=== PATIENT | female | born 1945 | race Caucasian/White ===

== ENCOUNTER → 2018-07-28 | Outpatient (CLI) | payer MEDICARE, OTHER ==
[~2018-07-28] MED LIST: AMIT25TA PO; AMLO1CAP10 PO; AMLO5TAB7 PO; ASPI-612 PO; ATOR10TA PO; DICL100G18 TP; DULO60CA6 PO; ECON15CR TP; FLUT16SP NS; FLUT1DIS3 IH; GABA600T2 PO; HYDR12.58 PO; IBUP-1027 PO; LEVO125T5 PO; LEVO150T5 PO; LISI-334 PO; LISI10TA2 PO; METF500T16 PO; MONT10TA9 PO; OMEP40CA5 PO; PROAIR HFA8.5 GM INH; SITA25TA PO; SPIR25TA5 PO
--- NOTE | 2018-07-28 14:25 | EKG ---
[facility] [address] [place] [address] Test Date: 2018-07-28 Test Time: 13:29:20 Pat Name: SANDRA SEE Department: Room: Gender: F Weight Shifter: BRITNEY Martinez : 1945 Requested By: REJI URIBE Order Number: [id number] Reading MD: Edwin Wellington MD Measurements Intervals [place] Rate: 72 P: 43 UT: 214 QRS: 6 QRSD: 90 T: 67 QT: 376 QTc: 413 Interpretive Statements SINUS RHYTHM 1ST DEGREE AVB NON-SPECIFIC ST/T CHANGES Electronically Signed On 07-29-2018 10:07:51 CDT by Edwin Wellington MD
[2018-07-28 14:31] LABS: BILIRUBIN,URINE NEGATIVE (NEG); CLARITY,URINE CLEAR; COLOR,URINE YELLOW; NITRITE,URINE NEGATIVE (NEG); PROTEIN,URINE NEGATIVE (NEG-TRACE)
[2018-07-28 14:55] LABS: BACTERIA,URINE FEW /HPF (0-FEW); HYALINE CASTS, URINE FEW /HPF; RBC,URINE OCC /HPF (0-2); SQUAMOUS EPITHELIAL CELL,UR MOD /LPF
[2018-07-28 15:10] LABS: BASO # 0.1 x10^3/uL (0.0-0.2); BASO % 1 % (0-3); EOS # 0.3 x10^3/uL (0.0-0.7); EOS % 3 % (0-3); HEMATOCRIT 35.6 % (36.0-47.0); HEMOGLOBIN 12.1 g/dL (12.0-15.5); LYMPH # 2.3 x10^3/uL (1.0-4.8); LYMPH % 23 % (24-48); MEAN CORPUSCULAR HEMOGLOBIN 29 pg (25-35); MEAN CORPUSCULAR HGB CONC 34 g/dL (31-37); MEAN CORPUSCULAR VOLUME 86 fL (79-100); MONO # 0.7 x10^3/uL (0.0-1.1); MONO % 8 % (0-9); NEUT # 6.4 x10^3uL (1.8-7.7); NEUT % 65 % (31-73); PLATELET COUNT 410 x10^3/uL (140-400); PROTHROMBIN TIME PATIENT 12.7 SEC (11.7-14.0); RED BLOOD COUNT 4.12 x10^6/uL (3.50-5.40); RED CELL DISTRIBUTION WIDTH 14.7 % (11.5-14.5); WHITE BLOOD COUNT 9.8 x10^3/uL (4.0-11.0)
[2018-07-28 15:21] LABS: CALCIUM 9.7 mg/dL (8.5-10.1); CREATININE 1.4 mg/dL (0.6-1.0); GFR 37.1; POTASSIUM 4.3 mmol/L (3.5-5.1)
--- NOTE | 2018-07-28 16:27 | RAD ---
AP and Lateral Views of the Chest 07/28/2018 3:18 PM Indication: left knee replacement Comparison: None Findings: There is no focal consolidation or infiltrate identified. The cardiomediastinal silhouette is within normal limits. There is no evidence of pneumothorax or pleural effusion. Dorsal column stimulator noted. No acute osseous abnormalities are identified. Impression: No evidence of acute cardiopulmonary process. Electronically signed by: Carlos Sheikh MD (07/28/2018 4:23 PM) [id number]
[2018-07-29 05:20] LABS: HEMOGLOBIN A1C 6.1 % (4.8-5.6)
== END | disposition home or self-care (01) ==
LOC: SURGPAT 13:12
PROVIDERS: ATTEND Orthopaedic Surgery
DX: Z01.818 Encounter for other preprocedural examination (principal); M17.12 Unilateral primary osteoarthritis, left knee
CPT/HCPCS: 36415; 71046; 80048; 81001; 82040; 82306; 83036; 85025; 85610; 85651; 85730; 87086; 87641; 93005

== ENCOUNTER 2018-08-19 10:40 | Inpatient (IN) | payer MEDICARE, OTHER ==
--- NOTE | 2018-08-18 13:21 | PDOC1 ---
History and Physical Date of Admission Date of Admission DATE: 08/19/18 Identification/Chief Complaint Chief Complaint left knee osteoarthritis pain Source Source: Chart review History of Present Illness History of Present Illness The patient is a 72 y/o female with left knee pain worsening in the last few months. She was last seen in clinic on 06.09.2018. She was offered a cortisone injection, but did not want one at the time. She is ready to proceed with total knee arthroplasty. She states the knee hurts constantly, and interferes with her daily life. She states she has osteoarthritis of the feet and neuropathy of the feet. She arrived ambulating without assistive devices. She had excessive bleeding with carpal tunnel release Past Medical History Cardiovascular: HTN Psych: Depression Endocrine: Hypothyroidism Past Surgical History Past Surgical History: Cholecystectomy, Hysterectomy, Other (bowel surgery, bilat carpal tunnel release) Family History Family History: Diabetes, Heart Disease, Hypertension Social History Smoke: No ALCOHOL: none Drugs: None Current Medications Current Medications Active Scripts Active Reported Advair 250-50 Diskus (Fluticasone/Salmeterol) 1 Each Disk.w.dev 1 Puff IH BID Spironolactone 25 Mg Tablet 1 Tab PO DAILY Omeprazole 40 Mg Capsule.dr 1 Cap PO DAILY Montelukast Sodium Tablet (Montelukast Sodium) 10 Mg Tablet 1 Tab PO HS Metformin Hcl 500 Mg Tablet 500 Mg PO DAILY Lisinopril 10 Mg Tablet 1 Tab PO HS Levothyroxine Sodium 125 Mcg Tablet 1 Tab PO DAILY Ibuprofen 400 Mg Tablet 400 Mg PO PRN Q6HRS PRN Hydrochlorothiazide Tablet (Hydrochlorothiazide) 12.5 Mg Tablet 25 Mg PO DAILY Gabapentin 600 Mg Tablet 600 Mg PO TID Fluticasone Propionate Nasal [place] (Fluticasone Propionate) 16 Gm [place].susp 1 [place] NS DAILY Cymbalta (Duloxetine Hcl) 60 Mg Capsule.dr 1 Cap PO DAILY Voltaren (Diclofenac Sodium) 100 Gm Gel..gram. 2 Gm TP QID Aspirin Ec (Aspirin) 81 Mg Tablet.dr 1 Tab PO DAILY Amlodipine Besylate 5 Mg Tablet 5 Mg PO DAILY Proair Hfa Inhaler (Albuterol Sulfate) 8.5 Gm Hfa.aer.ad 2 Puff INH PRN Q6HRS PRN Spironolactone 25 Mg Tablet 25 Mg PO DAILY Lipitor (Atorvastatin Calcium) 10 Mg Tablet 10 Mg PO DAILY Januvia (Sitagliptin Phosphate) 25 Mg Tablet 25 Mg PO DAILY Allergies Allergies: Coded Allergies: Sulfa (Sulfonamide Antibiotics) (Verified Allergy, Intermediate, Rash, 07/28/18) Physical Exam General: Alert, Oriented X3, Cooperative, No acute distress HEENT: Atraumatic, EOMI Lungs: Normal air movement Heart: RRR Abdomen: Soft Extremities: No clubbing, No cyanosis, Normal pulses, Other ( LEFT KNEE: No masses. No detectable effusion. Tenderness on the medial and lateral joint lines. Range of motion is 2-120 degrees. There is crepitus with range of motion , and pain at the extremes of motion. The knee is stable to varus and valgus stress without subluxation or laxity. Muscle strength is normal (5/5) for quadriceps and hamstrings, and muscle tone is normal. The skin is normal with no scars, rashes, lesions or ulcers. Light touch sensation is intact. No edema. Some varicose veins. Dorsalis pedis pulse is +1 and capillary refill is normal. ) Skin: No rashes, No breakdown, No significant lesion Neuro: Normal speech, Sensation intact Psych/Mental Status: Mental status NL, Mood NL Images Images IMAGING REPORT Joint survey, hips knees and ankles Clinical information: Preoperative for total knee arthroplasty Comparison: None. Findings Bones: The angle between the right hip-ankle mechanical axis and the femoral shaft is 5 degrees. The angle between the left hip-ankle mechanical axis and the femoral shaft is 5 degrees. From hip to ankle, the right lower extremity is in a degrees of varus. From hip to ankle, the left lower extremity is in 9degrees of varus. Joints: There is narrowing of the right knee joint medially. There is narrowing of the left knee joint medially. The hips and ankles show minimal degenerative changes. Soft tissue: Normal. Impression: Varus alignment of the right knee. Varus alignment of the left knee. The difference between the mechanical axis and femoral shaft anatomic axis is 5 degrees bilaterally. Dictated and Signed Using Voice Recognition Software Richie Sebastian MD VTE Prophylaxis Ordered VTE Prophylaxis Devices: Yes VTE Pharmacological Prophylaxi: Yes Assessment/Plan Assessment/Plan Left knee osteoarthritis pain. Ysabel is a 72 year old female with left knee osteoarthritis. She would like to proceed with total knee replacement. She will not go to the [facility] preoperatively as she went with her recently when he had his knee done. She will schedule at her convenience. We discussed the risks and benefits of knee replacement including bleeding, infection, post-operative stiffness, instability, ilya-prosthetic fracture, DVT and PE. All questions were answered. She would like to proceed with the surgery to improve her pain with activity. Follow up with me 10-12 days after surgery. SHIRAZ ANGEL Aug 18, 2018 13:21
[~2018-08-19] VITALS: Ht 162.6 cm; Wt 104.3 kg
[2018-08-19] VITALS (7 sets, daily range): BP systolic 122–142; BP diastolic 72–85
[~2018-08-19 10:40] MED LIST changes: +HYDROcodone/APAP 7.5/325MG 1 TAB TABLET PO PRN; +HYDROmorphone 2 MG/ML VIAL IV PRN; +IV RINGERS,LACTATED 1000ML 1,000 ML IV SCH; +LIDOCAINE 1% PF 2 ML VIAL. ID PRN; +MORPHINE SULFATE 2 MG/ML VIAL. IV PRN; +ONDANSETRON PF 4 MG/2 ML VIAL. IV PRN; +PROCHLORPERAZINE 10 MG/2 ML VIAL. IV PRN; +TRANEXAMIC ACID 1,000 MG in IV NS 50ML -- 1ST BAG INJ ONE; +TRANEXAMIC ACID 1,000 MG in IV NS 50ML -- 2ND BAG INJ ONE; +fentaNYL PF VIAL 100 MCG/2 ML VIAL IV PRN
[2018-08-19] MEDS ORDERED: PROPOFOL 20 ML IV ONE (10:44)
[2018-08-19] MEDS ORDERED: LIDOCAINE 2% PF Vial for OR 5 ML VIAL. ONE (10:44)
[2018-08-19] MEDS ORDERED: ONDANSETRON PF 4 MG/2 ML VIAL. ONE (10:44)
[2018-08-19] MEDS ORDERED: DEXAMETHASONE SOD PHOS 20 MG/5 ML VIAL. ONE (10:44)
[2018-08-19] MEDS ORDERED: PHENYLEPHRINE in 0.9% NACL PF 1 MG/10 ML SYRINGE. IV ONE (10:44)
[2018-08-19] MEDS ORDERED: fentaNYL PF VIAL 100 MCG/2 ML VIAL ONE ×3 (11:06→14:46)
[2018-08-19] MEDS ORDERED: MIDAZOLAM HCL/PF 2 MG/2 ML VIAL. ONE (11:06)
[2018-08-19] MEDS ORDERED: VANCOMYCIN 1 GM VIAL. ONE (11:18)
[2018-08-19] MEDS ORDERED: TOBRAMYCIN POWDER 1.2 GM VIAL. ONE (11:18)
[2018-08-19] MEDS ORDERED: SUCCINYLCHOLINE 200 MG/10 ML VIAL. ONE (13:00)
[2018-08-19] MEDS ORDERED: ROCURONIUM 50 MG/5 ML VIAL. ONE (13:01)
[2018-08-19] MEDS ORDERED: ePHEDrine PF IN SALINE 50 MG/5 ML DISP.SYRIN IV ONE (13:51)
[2018-08-19] MEDS ORDERED: GLYCOPYRROLATE 1 MG/5 ML VIAL. ONE (14:10)
[2018-08-19] MEDS ORDERED: KETAMINE HCL 50 MG/5 ML SYRINGE ONE (14:46)
[2018-08-19] MEDS ORDERED: NEOSTIGMINE METHYLSULFATE 5 MG/5 ML SYRINGE. ONE (14:56)
--- NOTE | 2018-08-19 15:42 | PDOC4 ---
Operative Note Operative Note Date of Procedure: August 19, 2018 Pre-Op Diagnosis: Osteoarthritis left knee Post-Op Diagnosis: Osteoarthritis left knee Procedure: left total knee arthroplasty Surgeon: Reji Sebastian MD Weatherization Installer: Libertad Lara PA-C Anesthesia: General EBL: 100mL Specimens Obtained: left knee bone and soft tissue Complications: none Implant Company: [employer] Drains: hemovac plus pain catheter Tourniquet time: 44 Minutes Tourniquet Pressure: 350 mm Hg Indications for Procedure: Arthritis pain unrelieved by nonoperative management Findings: Severe osteoarthritis with full thickness cartilage loss in all three compartments, especially at the medial tibiofemoral joint where there was eburnated bone and small area of bone loss at the medial tibia articular surface. Implants used: Size 3 left bicruciate stabilized Journey II BCS cobalt chrome femoral component, size 2 left Journey nonporous tibial baseplate, size 1 -2 15 mm left Journey II BCS XLPE articular insert, 32 mm oval Malina II resurfacing patellar component Procedure in Detail: The patient was identified in the preoperative holding area, and the correct left lower extremity was marked by me. The patient was taken to the operating room where the patient was anesthetized by the Department of Anesthesia. Preoperative antibiotics were given intravenously. Tranexamic acid 1 g was given intravenously for intraoperative hemostasis. A "time-out" procedure was performed. The patient was positioned supine on the operative table with a tourniquet on the upper left thigh. The left lower limb was thoroughly scrubbed , then sterile surgical prep solution was applied, and the limb was draped in sterile fashion. An impervious stockinet and adhesive drape were used such that the skin was entirely covered. An Dunlap leg stanton was used. The operating team wore personal exhaust-ventilated hoods. The limb exsanguinated with an Esmarch bandage, and the tourniquet was inflated. A midline skin incision was made with a scalpel using the patella and tibial tubercle as landmarks. Electrocautery was used for hemostasis. My licensed nursing assistant used rake retractors. A medial parapatellar arthrotomy incision was used with extension into the distal quadriceps tendon. The patella was retracted laterally and Hohmann retractors were now used by my licensed nursing assistant. Excess synovium, the menisci, and the cruciate ligaments were resected sharply. The patella was assessed and excess synovium and osteophytes around the patellar articulation were removed. The patella was measured with a caliper, cut freehand with a saw using caliper measurements, sized, and then drilled for an oval three-pegged patella component. Periarticular anesthetic injection was used in the suprapatellar pouch and distal quadriceps muscle. Whitesides's line and the transepicondylar axis were marked on the femur. An intra-medullary 5 degree cutting guide was pinned to the femur, and a distal femoral cut was made with an oscillating saw. No additional distal femoral resection was required. My licensed nursing assistant held Hohmann retractors and an [facility] retractor to protect the medial and lateral collateral ligaments, the patellar tendon, the skin and the other soft tissues. A posterior referencing guide was applied with external rotation of 3 to match Whitesides line. A 5-in-1 Journey II cutting guide was then applied and pinned to the femur. The posterior, anterior, and all chamfer cuts were made with the oscillating saw. An extramedullary guide was pinned to the tibia and rotational alignment and the planned resection thickness assessed. An external alignment sera was used to verify the planned cut in the varus-valgus plane and regarding posterior slope referencing the tibial tubercle, the tibial shaft, the ankle joint, and the second metatarsal. The upper tibia was cut made with an oscillating saw. My licensed nursing assistant held Hohmann retractors and a posterior cruciate ligament retractor to protect the medial and lateral collateral ligaments, the patellar tendon, the skin, the peroneal nerve and the other soft tissues. The upper tibia was sized with a trial baseplate. The posterior compartment was cleared of osteophytes and loose bodies. Periarticular anesthetic injection was used in the posterior compartment. The box cut for a posterior stabilized component was made. A preliminary reduction was performed with a trial femur, trial tibial baseplate and trial polyethylene. Soft-tissue balancing was now performed, and extension and rotation of the alignments was checked using a guide sera in the tibial trial and a guide pin in the femur. No additional releases were required. The stability was assessed using different thicknesses of tibial articular surface to find satisfactory stability and good range of motion. The rotation of the tibial component was marked on the upper tibia. Final trial reduction was now performed verifying patella tracking and tibiofemoral stability and alignment. A lateral patellar retinacular release was used for improved patella tracking. The tibia preparation was completed with a drill, saw, and fin punch at the previously noted rotation. The final implants were verified and opened. Outer gloves were changed by the operating team. The bone cuts were washed thoroughly with the [place] InterPulse device and dried. I asked Ms. Lara to leave the room while the cement was mixed. Two packages of Cervantes + Nephew Rally MV bone cement were mixed in powdered form with Vancomycin 1gm and Tobramycin 1.2 gm, and then vacuum-mixed with the monomer, and placed into a cement gun. The cut surfaces of the bone were thoroughly dried with Walls-tip suction and with laparotomy sponges for cement interdigitation. The final components were cemented into place. The knee was kept at full extension while the cement hardened, and excess cement was removed. Tranexamic acid 1 g was redosed intravenously for additional intraoperative hemostasis. Ms. Lara scrubbed, hooded, gowned, gloved, and returned to the case. The tourniquet was released, and electrocautery was used for hemostasis. A final periarticular anesthetic injection was used for pain relief. A final check of [id number] and stability was made, and the polyethylene implant final size was chosen. The polyethylene implant was secured to the tibial baseplate, and the knee was reduced a final time and range of motion and stability was confirmed. Thorough saline irrigation was used. Hemovac and pain catheter were used. The arthrotomy was closed with interrupted figure-of- eight #1 PDS suture. The arthrotomy incision was then run with #1 STRATAFIX Symmetric PDS Plus Knotless suture. The subcutaneous tissues were closed with #2-0 Vicryl by my licensed nursing assistant. The skin was approximated with isatu by my licensed nursing assistant. The skin incision was then covered and reinforced with CONRAD single use negative pressure wound therapy dressing Needle and sponge counts were correct. There were no apparent complications. The patient returned to the recovery room in stable condition. REJI SEBASTIAN MD Aug 19, 2018 15:42
[2018-08-19] MEDS ORDERED: SEVOFLURANE > 120 MINUTES. IH ONE (15:45)
[2018-08-19] MEDS ORDERED: oxyCODONE/APAP 5/325 1 TAB TABLET PO PRN (16:00)
[2018-08-19] MEDS ORDERED: diphenhydrAMINE HCL 25 MG CAPSULE PO PRN (16:00)
[2018-08-19] MEDS ORDERED: PROCHLORPERAZINE 5 MG TABLET. PO PRN (16:00)
[2018-08-19] MEDS ORDERED: CALCIUM CARBONATE 500 MG TAB.CHEW PO PRN (16:00)
[2018-08-19] MEDS ORDERED: PROCHLORPERAZINE 10 MG/2 ML VIAL. IV PRN (16:00)
[2018-08-19] MEDS ORDERED: fentaNYL PF VIAL 100 MCG/2 ML VIAL IV PRN ×2 (16:00)
[2018-08-19] MEDS ORDERED: ZOLPIDEM 5 MG TABLET. PO PRN (16:00)
[2018-08-19] MEDS ORDERED: HYDROcodone/APAP 7.5/325MG 1 TAB TABLET PO PRN (16:00)
[2018-08-19] MEDS ORDERED: MORPHINE SULFATE 10 MG/ML VIAL. IV PRN (16:00)
[2018-08-19] MEDS ORDERED: MORPHINE SULFATE 4 MG/ML VIAL. IV PRN ×2 (16:00)
[2018-08-19] MEDS ORDERED: 0.9 % SODIUM CHLORIDE 10 ML DISP.SYRIN. IV PRN (16:00)
[2018-08-19] MEDS ORDERED: traMADol 50 MG TABLET PO PRN ×2 (16:00)
[2018-08-19] MEDS ORDERED: MORPHINE SULFATE 2 MG/ML VIAL. IV PRN (16:00)
[2018-08-19] MEDS ORDERED: ACETAMINOPHEN 325 MG TABLET. PO PRN (16:00)
[2018-08-19] MEDS ORDERED: HYDROcodone/APAP 10/325 1 TAB TABLET PO PRN (16:00)
[2018-08-19] MEDS ORDERED: METOCLOPRAMIDE HCL 10 MG/2 ML VIAL. IV PRN (16:00)
[2018-08-19] MEDS ORDERED: DEXTROSE 50% 25 GM / 50ML DISP.SYRIN. IV PRN (16:00)
[2018-08-19] MEDS: fentaNYL PF VIAL 100 MCG/2 ML VIAL IV PRN ×4 (16:15→16:48)
[2018-08-19] MEDS: amLODIPine BESYLATE 5 MG TABLET PO SCH (17:00)
[2018-08-19] MEDS: FERROUS SULFATE 325 MG TABLET. PO SCH (17:00)
[2018-08-19] MEDS: DULoxetine HCL 30 MG CAPSULE.DR PO SCH (17:00)
[2018-08-19] MEDS: SPIRONOLACTONE 25 MG TABLET PO SCH (17:00)
[2018-08-19] MEDS: hydroCHLOROthiazide 25 MG TABLET PO SCH (17:00)
[2018-08-19] MEDS: MULTIVITAMIN with MINERAL TABLET. PO SCH (17:00)
[2018-08-19] MEDS ORDERED: MAGNESIUM HYDROXIDE 2,400 MG/30 ML ORAL.SUSP. PO PRN (17:00)
[2018-08-19] MEDS: PANTOPRAZOLE 40 MG TABLET.DR. PO SCH (17:30)
--- NOTE | 2018-08-19 17:35 | RAD ---
Indication:POST OP LEFT KNEE REPLACEMENT. TECHNIQUE: 2 views of the left knee COMPARISON:None FINDINGS: Status post total left knee arthroplasty. No acute fractures. Surgical drain is seen with its tip in the anterior joint space. No significant suprapatellar effusion. Midline anterior skin isatu noted. IMPRESSION: Expected postsurgical changes from totalw knee arthroplasty. Electronically signed by: Hermann Barajas DO (08/19/2018 5:32 PM) [facility]
[2018-08-19] MEDS: IV DEXTROSE 5 %-0.45 % NACL 1,000 ML IV SCH (17:39)
[2018-08-19] MEDS ORDERED: ALBUTEROL SULFATE 2.5 MG/3 ML NEBU. NEB SCH (18:00)
[2018-08-19] MEDS: oxyCODONE/APAP 7.5/325 1 TAB TABLET PO PRN ×2 (18:33→21:51)
[2018-08-19] MEDS: BUDESONIDE 0.5 MG/2 ML NEBU. NEB SCH ×2 (20:00→20:01)
[2018-08-19] MEDS: ALBUTEROL SULFATE 2.5 MG/3 ML NEBU. NEB SCH ×2 (20:01→20:12)
[2018-08-19] MEDS ORDERED: NON FORMULARY ITEM (Fluticasone/Salmeterol (Advair 250-50 Diskus) 1 PUFF) IH SCH (21:00)
[2018-08-19] MEDS: ATORVASTATIN CALCIUM 10 MG TABLET. PO SCH (21:04)
[2018-08-19] MEDS: ASPIRIN ENTERIC COATED 325 MG TABLET.DR. PO SCH (21:04)
[2018-08-19] MEDS: MONTELUKAST SODIUM 10 MG TABLET. PO SCH (21:04)
[2018-08-19] MEDS: GABAPENTIN 300 MG CAPSULE. PO SCH (21:05)
[2018-08-19] MEDS: LISINOPRIL 10 MG TABLET PO SCH (21:05)
[2018-08-19] MEDS ORDERED: ALBUTEROL INH PRN (23:00)
[2018-08-20] MEDS: IV DEXTROSE 5 %-0.45 % NACL 1,000 ML IV SCH ×3 (01:53→19:21)
[2018-08-20] MEDS: oxyCODONE/APAP 7.5/325 1 TAB TABLET PO PRN ×4 (02:11→19:26)
[2018-08-20 03:18] VITALS: BP 140/78
[2018-08-20 04:43] LABS: HEMATOCRIT 30.9 % (36.0-47.0); HEMOGLOBIN 10.4 g/dL (12.0-15.5)
[2018-08-20] MEDS: LEVOTHYROXINE 125 MCG TABLET PO SCH (06:07)
[2018-08-20] MEDS: PANTOPRAZOLE 40 MG TABLET.DR. PO SCH (06:07)
[2018-08-20 06:39] VITALS: BP 110/65
[2018-08-20] MEDS: SPIRONOLACTONE 25 MG TABLET PO SCH (08:14)
[2018-08-20] MEDS: DULoxetine HCL 30 MG CAPSULE.DR PO SCH (08:14)
[2018-08-20] MEDS: ASPIRIN ENTERIC COATED 325 MG TABLET.DR. PO SCH ×2 (08:15→21:40)
[2018-08-20] MEDS: SENNOSIDES/DOCUSATE 8.6/50MG TABLET. PO SCH ×2 (08:15→15:49)
[2018-08-20] MEDS: MULTIVITAMIN with MINERAL TABLET. PO SCH (08:15)
[2018-08-20] MEDS: metFORMIN 500 MG TABLET PO SCH (08:15)
[2018-08-20] MEDS: hydroCHLOROthiazide 25 MG TABLET PO SCH (08:15)
[2018-08-20] MEDS: GABAPENTIN 300 MG CAPSULE. PO SCH ×3 (08:15→21:40)
[2018-08-20] MEDS: FERROUS SULFATE 325 MG TABLET. PO SCH ×2 (08:15→15:49)
[2018-08-20] MEDS: NON FORMULARY ITEM (Fluticasone/Salmeterol (Advair 250-50 Diskus) 1 PUFF) IH SCH ×2 (08:17→21:41)
[2018-08-20 08:21] VITALS: BP 102/64
[2018-08-20] MEDS: FLUTICASONE 50MCG/NASAL SPRAY 16GM BOTTLE. NS SCH (09:00)
[2018-08-20] MEDS ORDERED: NON FORMULARY ITEM (Spironolactone 1 TAB) PO SCH (09:00)
[2018-08-20] MEDS ORDERED: NON FORMULARY ITEM (Fluticasone/Salmeterol (Advair 250-50 Diskus) 1 PUFF) IH SCH (09:00)
[2018-08-20] MEDS: amLODIPine BESYLATE 5 MG TABLET PO SCH (09:00)
[2018-08-20] MEDS ORDERED: SPIRONOLACTONE 25 MG PO SCH (09:00)
--- NOTE | 2018-08-20 09:22 | PDOC ---
PROGRESS NOTES Subjective Subjective Doing well. Pain controlled. Objective Vital Signs Vital Signs Date Time Temp Pulse Resp B/P (MAP) Pulse Ox O2 Delivery O2 Flow Rate FiO2 08/20/18 08:21 64 20 102/64 (77) 08/20/18 06:39 98.3 95 Room Air 98.3 08/19/18 18:37 3.0 Physical Exam Postop dressing dry and intact. Hemovac and pain catheter in place. Thigh and calf soft and nontender with negative Homans sign. Good AROM toes, foot, and ankle, with no sign of neurovascular injury nor compartment syndrome. Labs Laboratory Tests Test 08/19/18 11:28 08/19/18 16:37 08/20/18 04:15 08/20/18 07:00 Glucose (Fingerstick) 114 mg/dL (70-99) 199 mg/dL (70-99) 118 mg/dL (70-99) Hemoglobin 10.4 g/dL (12.0-15.5) Hematocrit 30.9 % (36.0-47.0) Mean Corpuscular Hemoglobin Concent 34 g/dL (31-37) Laboratory Tests Test 08/19/18 11:28 08/19/18 16:37 08/20/18 04:15 08/20/18 07:00 Glucose (Fingerstick) 114 mg/dL (70-99) 199 mg/dL (70-99) 118 mg/dL (70-99) Hemoglobin 10.4 g/dL (12.0-15.5) Hematocrit 30.9 % (36.0-47.0) Mean Corpuscular Hemoglobin Concent 34 g/dL (31-37) Imaging Postoperative knee x-rays report reviewed, images independently reviewed. Satisfactory TKA alignment with no apparent complications. Assessment Assessment POD #1 TKA Plan Plan of Care Continue POC including PT and DVT prophylaxis. SHIRAZ ANGEL Aug 20, 2018 09:22
[2018-08-20 11:45] VITALS: BP 94/65
[2018-08-20] MEDS ORDERED: BISACODYL 10 MG SUPP.RECT. PR PRN (16:00)
[2018-08-20 17:48] VITALS: BP 104/62
[2018-08-20] MEDS: LISINOPRIL 10 MG TABLET PO SCH (21:00)
[2018-08-20] MEDS: ATORVASTATIN CALCIUM 10 MG TABLET. PO SCH (21:40)
[2018-08-20] MEDS: AMITRIPTYLINE HCL 50 MG TABLET PO SCH (21:40)
[2018-08-20] MEDS: MONTELUKAST SODIUM 10 MG TABLET. PO SCH (21:40)
[2018-08-21] MEDS: oxyCODONE/APAP 7.5/325 1 TAB TABLET PO PRN ×5 (04:19→20:40)
[2018-08-21 05:35] LABS: HEMATOCRIT 29.6 % (36.0-47.0); HEMOGLOBIN 9.8 g/dL (12.0-15.5)
[2018-08-21 05:46] VITALS: BP 109/56
[2018-08-21] MEDS: PANTOPRAZOLE 40 MG TABLET.DR. PO SCH (06:34)
[2018-08-21] MEDS: LEVOTHYROXINE 125 MCG TABLET PO SCH (06:34)
[2018-08-21] MEDS: FLUTICASONE 50MCG/NASAL SPRAY 16GM BOTTLE. NS SCH (09:00)
[2018-08-21] MEDS: GABAPENTIN 300 MG CAPSULE. PO SCH ×3 (09:03→20:39)
[2018-08-21] MEDS: ASPIRIN ENTERIC COATED 325 MG TABLET.DR. PO SCH ×2 (09:04→20:39)
[2018-08-21] MEDS: MULTIVITAMIN with MINERAL TABLET. PO SCH (09:04)
[2018-08-21] MEDS: SENNOSIDES/DOCUSATE 8.6/50MG TABLET. PO SCH (09:04)
[2018-08-21] MEDS: metFORMIN 500 MG TABLET PO SCH (09:04)
[2018-08-21] MEDS: FERROUS SULFATE 325 MG TABLET. PO SCH ×2 (09:04→17:05)
[2018-08-21] MEDS: DULoxetine HCL 30 MG CAPSULE.DR PO SCH (09:04)
[2018-08-21] MEDS: SPIRONOLACTONE 25 MG TABLET PO SCH (09:07)
[2018-08-21] MEDS: hydroCHLOROthiazide 25 MG TABLET PO SCH (09:07)
[2018-08-21] MEDS: amLODIPine BESYLATE 5 MG TABLET PO SCH (09:08)
[2018-08-21] MEDS: NON FORMULARY ITEM (Fluticasone/Salmeterol (Advair 250-50 Diskus) 1 PUFF) IH SCH ×2 (12:26→20:41)
--- NOTE | 2018-08-21 12:56 | PDOC ---
PROGRESS NOTES Subjective Subjective Pain controlled Objective Vital Signs Vital Signs Date Time Temp Pulse Resp B/P (MAP) Pulse Ox O2 Delivery O2 Flow Rate FiO2 08/21/18 09:10 Room Air 08/21/18 09:08 90 109/64 08/21/18 05:46 97.9 16 90 97.9 08/19/18 18:37 3.0 Physical Exam Knee Prevena dressing with spotty drainage only, and slight bleeding from hemovac site. Calf and thigh soft and NT. Good AROM toes, foot and ankle with negative Homans and no sign of neurovascular injury nor compartment syndrome. Pain catheter and hemovac have been removed. Not yet safely walking with walker Labs Laboratory Tests Test 08/19/18 16:37 08/20/18 04:15 08/20/18 07:00 08/20/18 11:51 Glucose (Fingerstick) 199 mg/dL (70-99) 118 mg/dL (70-99) 115 mg/dL (70-99) Hemoglobin 10.4 g/dL (12.0-15.5) Hematocrit 30.9 % (36.0-47.0) Mean Corpuscular Hemoglobin Concent 34 g/dL (31-37) Test 08/20/18 16:29 08/20/18 20:23 08/21/18 05:00 08/21/18 06:36 Glucose (Fingerstick) 96 mg/dL (70-99) 94 mg/dL (70-99) 99 mg/dL (70-99) Hemoglobin 9.8 g/dL (12.0-15.5) Hematocrit 29.6 % (36.0-47.0) Mean Corpuscular Hemoglobin Concent 33 g/dL (31-37) Laboratory Tests Test 08/20/18 16:29 08/20/18 20:23 08/21/18 05:00 08/21/18 06:36 Glucose (Fingerstick) 96 mg/dL (70-99) 94 mg/dL (70-99) 99 mg/dL (70-99) Hemoglobin 9.8 g/dL (12.0-15.5) Hematocrit 29.6 % (36.0-47.0) Mean Corpuscular Hemoglobin Concent 33 g/dL (31-37) Imaging Postoperative knee x-rays. Report reviewed, images independently reviewed. Satisfactory TKA alignment with no apparent complications. Assessment Assessment POD 2 after TKA Plan Plan of Care Continue PT and DVT prophylaxis. Discharge planning for tomorrow REJI URIBE MD Aug 21, 2018 12:56
[2018-08-21 17:00] VITALS: BP 102/55
[2018-08-21] MEDS: ATORVASTATIN CALCIUM 10 MG TABLET. PO SCH (20:39)
[2018-08-21] MEDS: AMITRIPTYLINE HCL 50 MG TABLET PO SCH (20:40)
[2018-08-21] MEDS: LISINOPRIL 10 MG TABLET PO SCH (20:40)
[2018-08-21] MEDS: MONTELUKAST SODIUM 10 MG TABLET. PO SCH (20:41)
[2018-08-22 04:33] LABS: HEMOGLOBIN 9.1 g/dL (12.0-15.5)
[2018-08-22 05:30] VITALS: BP 103/53
[2018-08-22] MEDS: PANTOPRAZOLE 40 MG TABLET.DR. PO SCH (05:40)
[2018-08-22] MEDS: LEVOTHYROXINE 125 MCG TABLET PO SCH (05:40)
[2018-08-22 08:02] VITALS: BP 112/57
[2018-08-22] MEDS: ASPIRIN ENTERIC COATED 325 MG TABLET.DR. PO SCH (08:04)
[2018-08-22] MEDS: GABAPENTIN 300 MG CAPSULE. PO SCH ×2 (08:04→13:20)
[2018-08-22] MEDS: SENNOSIDES/DOCUSATE 8.6/50MG TABLET. PO SCH (08:04)
[2018-08-22] MEDS: metFORMIN 500 MG TABLET PO SCH (08:04)
[2018-08-22] MEDS: DULoxetine HCL 30 MG CAPSULE.DR PO SCH (08:04)
[2018-08-22] MEDS: MULTIVITAMIN with MINERAL TABLET. PO SCH (08:04)
[2018-08-22] MEDS: FERROUS SULFATE 325 MG TABLET. PO SCH (08:04)
[2018-08-22] MEDS: FLUTICASONE 50MCG/NASAL SPRAY 16GM BOTTLE. NS SCH (09:00)
[2018-08-22] MEDS: NON FORMULARY ITEM (Fluticasone/Salmeterol (Advair 250-50 Diskus) 1 PUFF) IH SCH (09:00)
--- NOTE | 2018-08-22 09:40 | PDOC ---
PROGRESS NOTES Subjective Subjective Tito, RN overnight, called last night to inform me patient had fallen backwards and sustained a skin tear on her left forearm. Patient states she did not hurt her knee during the fall and she is feeling good today. Pain controlled. Objective Vital Signs Vital Signs Date Time Temp Pulse Resp B/P (MAP) Pulse Ox O2 Delivery O2 Flow Rate FiO2 08/22/18 08:02 81 112/57 (75) 08/22/18 05:30 98.2 22 94 Room Air 98.2 08/21/18 20:00 3.0 Physical Exam CONRAD dressing intact with spotty drainage only. Blister lateral to incision. Calf and thigh soft and NT. Good AROM toes, foot and ankle with negative Dahlia s sign and no sign of neurovascular injury nor compartment syndrome. Labs Laboratory Tests Test 08/20/18 11:51 08/20/18 16:29 08/20/18 20:23 08/21/18 05:00 Glucose (Fingerstick) 115 mg/dL (70-99) 96 mg/dL (70-99) 94 mg/dL (70-99) Hemoglobin 9.8 g/dL (12.0-15.5) Hematocrit 29.6 % (36.0-47.0) Mean Corpuscular Hemoglobin Concent 33 g/dL (31-37) Test 08/21/18 06:36 08/21/18 11:35 08/21/18 16:57 08/22/18 04:15 Glucose (Fingerstick) 99 mg/dL (70-99) 87 mg/dL (70-99) 105 mg/dL (70-99) Hemoglobin 9.1 g/dL (12.0-15.5) Hematocrit 27.0 % (36.0-47.0) Mean Corpuscular Hemoglobin Concent 34 g/dL (31-37) Test 08/22/18 06:09 Glucose (Fingerstick) 94 mg/dL (70-99) Laboratory Tests Test 08/21/18 11:35 08/21/18 16:57 08/22/18 04:15 08/22/18 06:09 Glucose (Fingerstick) 87 mg/dL (70-99) 105 mg/dL (70-99) 94 mg/dL (70-99) Hemoglobin 9.1 g/dL (12.0-15.5) Hematocrit 27.0 % (36.0-47.0) Mean Corpuscular Hemoglobin Concent 34 g/dL (31-37) Assessment Assessment POD #3 TKA Plan Plan of Care Continue PT and DVT prophylaxis. Discharge this afternoon to [place] after therapy. SHIRAZ ANGEL Aug 22, 2018 09:40
--- NOTE | 2018-08-22 09:47 | DISCH ---
DISCHARGE DISCHARGE INFORMATION: DISCHARGE DATE: Aug 22, 2018 FINAL DIAGNOSIS left knee osteoarthritis. Total knee arthroplasty CONDITION ON DISCHARGE: Stable CODE STATUS: Code Status: Full SHELTER: SNF STAY <30 DAYS: Yes POST DISCHARGE ORDERS: ACTIVITY ORDERS: Activity as tolerated WEIGHT BEARING STATUS: Full weight bearing BATHING ORDERS: Shower-keep dressing dry, No Tub Bath until see WOUND/INCISION CARE: Ice to area for comfort, Keep wound/cast CDI, Do not change dressing TREATMENT/EQUIPMENT ORDERS: Physical Therapy For: Evalulation/Treatment Occupational Therapy For: Evaluation/Treatment DISCHARGE MEDICATIONS: Home Meds Reported Medications Fluticasone/Salmeterol (ADVAIR 250-50 DISKUS) 1 Each Disk.w.dev, 1 PUFF IH BID, #3 INHALER 3 Refills 07/28/18 Spironolactone (SPIRONOLACTONE) 25 Mg Tablet, 1 TAB PO DAILY, #90 TAB 1 Refill 07/28/18 Omeprazole (OMEPRAZOLE) 40 Mg Capsule.dr, 1 CAP PO DAILY, #30 CAP 3 Refills 07/28/18 Montelukast Sodium (MONTELUKAST SODIUM TABLET) 10 Mg Tablet, 1 TAB PO HS, #30 TAB 5 Refills 07/28/18 Metformin Hcl (METFORMIN HCL) 500 Mg Tablet, 500 MG PO DAILY for ANTI-DIABETIC, TAB 0 Refills 07/28/18 Lisinopril (LISINOPRIL) 10 Mg Tablet, 1 TAB PO HS, #30 TAB 5 Refills 07/28/18 Levothyroxine Sodium (LEVOTHYROXINE SODIUM) 125 Mcg Tablet, 1 TAB PO DAILY, #30 TAB 5 Refills 07/28/18 Ibuprofen (IBUPROFEN) 400 Mg Tablet, 400 MG PO PRN Q6HRS PRN for INFLAMMATION, TAB 07/28/18 Hydrochlorothiazide (HYDROCHLOROTHIAZIDE TABLET) 12.5 Mg Tablet, 25 MG PO DAILY for DIURETIC, TAB 0 Refills 07/28/18 Gabapentin (GABAPENTIN) 600 Mg Tablet, 600 MG PO TID, TAB 07/28/18 Fluticasone Propionate (FLUTICASONE PROPIONATE NASAL SPRAY) 16 Gm [place].susp, 1 SPRAY NS DAILY, #1 INHALER 11 Refills 07/28/18 Duloxetine Hcl (CYMBALTA) 60 Mg Capsule.dr, 1 CAP PO DAILY, #90 CAP 3 Refills 07/28/18 Diclofenac Sodium (VOLTAREN) 100 Gm Gel..gram., 2 GM TP QID, #100 GM 2 Refills 07/28/18 Aspirin (ASPIRIN EC) 81 Mg Tablet.dr, 1 TAB PO DAILY, #30 TAB 3 Refills 07/28/18 Amlodipine Besylate (AMLODIPINE BESYLATE) 5 Mg Tablet, 5 MG PO DAILY, TAB 07/28/18 Albuterol Sulfate (PROAIR HFA INHALER) 8.5 Gm Hfa.aer.ad, 2 PUFF INH PRN Q6HRS PRN for SHORTNESS OF BREATH, INHALER 0 Refills 07/28/18 Spironolactone (SPIRONOLACTONE) 25 Mg Tablet, 25 MG PO DAILY, TAB 04/01/14 Atorvastatin Calcium (LIPITOR) 10 Mg Tablet, 10 MG PO DAILY for FOR CHOLESTEROL , #30 TAB 0 Refills 04/01/14 Discontinued Reported Medications Sitagliptin Phosphate (JANUVIA) 25 Mg Tablet, 25 MG PO DAILY, TAB 04/01/14 REJI URIBE MD Aug 22, 2018 09:47
--- NOTE | 2018-08-22 09:51 | PDOC3 ---
Discharge Summary Visit Information Date of Admission: Aug 19, 2018 Date of Discharge: Aug 22, 2018 Admitting Diagnosis: left knee osteoarthritis pain Brief Hospital Course Allergies Allergies Coded Allergies Type Severity Reaction Last Updated Verified Sulfa (Sulfonamide Antibiotics) Allergy Intermediate Rash 08/19/18 Yes Vital Signs Vital Signs Date Time Temp Pulse Resp B/P (MAP) Pulse Ox O2 Delivery O2 Flow Rate FiO2 08/22/18 08:02 81 112/57 (75) 08/22/18 05:30 98.2 22 94 Room Air 98.2 08/21/18 20:00 3.0 Lab Results Laboratory Tests Test 08/20/18 11:51 08/20/18 16:29 08/20/18 20:23 08/21/18 05:00 Glucose (Fingerstick) 115 mg/dL (70-99) 96 mg/dL (70-99) 94 mg/dL (70-99) Hemoglobin 9.8 g/dL (12.0-15.5) Hematocrit 29.6 % (36.0-47.0) Mean Corpuscular Hemoglobin Concent 33 g/dL (31-37) Test 08/21/18 06:36 08/21/18 11:35 08/21/18 16:57 08/22/18 04:15 Glucose (Fingerstick) 99 mg/dL (70-99) 87 mg/dL (70-99) 105 mg/dL (70-99) Hemoglobin 9.1 g/dL (12.0-15.5) Hematocrit 27.0 % (36.0-47.0) Mean Corpuscular Hemoglobin Concent 34 g/dL (31-37) Test 08/22/18 06:09 Glucose (Fingerstick) 94 mg/dL (70-99) Laboratory Tests Test 08/21/18 11:35 08/21/18 16:57 08/22/18 04:15 08/22/18 06:09 Glucose (Fingerstick) 87 mg/dL (70-99) 105 mg/dL (70-99) 94 mg/dL (70-99) Hemoglobin 9.1 g/dL (12.0-15.5) Hematocrit 27.0 % (36.0-47.0) Mean Corpuscular Hemoglobin Concent 34 g/dL (31-37) Brief Hospital Course 72 year old female who presented with knee osteoarthritis, for elective total knee arthroplasty. The patient underwent total knee arthroplasty under general anesthesia the day of admission. Perioperative antibiotics and DVT prophylaxis were used. Postoperatively physical therapy and case management were consulted. The patient progressed and is stable for discharge. Discharge Information Condition at Discharge: Stable Follow Up: Weeks (2) Disposition/Orders: D/C to Another Facility ([place]) Scheduled Amlodipine Besylate (Amlodipine Besylate), 5 MG PO DAILY, (Reported) Aspirin (Aspirin Ec), 1 TAB PO DAILY, (Reported) Atorvastatin Calcium (Lipitor), 10 MG PO DAILY, (Reported) Diclofenac Sodium (Voltaren), 2 GM TP QID, (Reported) Duloxetine Hcl (Cymbalta), 1 CAP PO DAILY, (Reported) Fluticasone Propionate (Fluticasone Propionate Nasal [place]), 1 SPRAY NS DAILY, ( Reported) Fluticasone/Salmeterol (Advair 250-50 Diskus), 1 PUFF IH BID, (Reported) Gabapentin (Gabapentin), 600 MG PO TID, (Reported) Hydrochlorothiazide (Hydrochlorothiazide Tablet), 25 MG PO DAILY, (Reported) Levothyroxine Sodium (Levothyroxine Sodium), 1 TAB PO DAILY, (Reported) Lisinopril (Lisinopril), 1 TAB PO HS, (Reported) Metformin Hcl (Metformin Hcl), 500 MG PO DAILY, (Reported) Montelukast Sodium (Montelukast Sodium Tablet), 1 TAB PO HS, (Reported) Omeprazole (Omeprazole), 1 CAP PO DAILY, (Reported) Spironolactone (Spironolactone), 25 MG PO DAILY, (Reported) Spironolactone (Spironolactone), 1 TAB PO DAILY, (Reported) Scheduled PRN Albuterol Sulfate (Proair Hfa Inhaler), 2 PUFF INH PRN Q6HRS PRN for SHORTNESS OF BREATH, (Reported) Ibuprofen (Ibuprofen), 400 MG PO PRN Q6HRS PRN for INFLAMMATION, (Reported) Discontinued Medications Sitagliptin Phosphate (Januvia), 25 MG PO DAILY, (Reported) Patient Instructions Patient Instructions Patient Instructions Continue to WBAT with walker. Keep dressing dry and intact. F/U with [facility] in 10-14 days. Call for appointment. Physical therapy for TKA Continue DVT prophylaxis with aspirin 325mg twice daily. SHIRAZ ANGEL Aug 22, 2018 09:51
[2018-08-22] MEDS ORDERED: ASPI325T11 PO (09:52)
[2018-08-22] MEDS: hydroCHLOROthiazide 25 MG TABLET PO SCH (10:20)
[2018-08-22] MEDS: amLODIPine BESYLATE 5 MG TABLET PO SCH (10:20)
[2018-08-22] MEDS: SPIRONOLACTONE 25 MG TABLET PO SCH (10:20)
[2018-08-22] MEDS: oxyCODONE/APAP 7.5/325 1 TAB TABLET PO PRN ×2 (11:57→16:10)
[2018-08-22 15:14] VITALS: BP 102/63
--- NOTE | 2018-08-25 14:07 | PATHOLOGY ---
[facility] Accession Number: [id number] . 01 Material submitted: . LEFT KNEE BONE . 01 Clinical history: . Knee pain . 02 Diagnosis: Segments of bone and soft tissue, left total knee arthroplasty: - Advanced degenerative arthritis. ([facility] 08/25/2018) QTP/08/25/2018 . 02 Electronically signed: . Klever Argueta MD, Pathologist NPI- [id number] . 01 Gross description: . The specimen is received in formalin, labeled "Ysabel Weaver, left knee bone", are multiple segments of bone and zapata-white fibrous to yellow soft tissues consisting of recognizable portion of tibia plateau, patella and meniscus measuring 12.5 x 10.0 x 2.5 cm in aggregate. Eburnation and peripheral osteophytes are present. [employer] tissue is submitted in A1 after decalcification. ([facility]; 08/20/2018) SHS/SHS . 02 Pathologist provided ICD-10: M17.12 . 02 CPT . 317938, [id number] Specimen Comment: A courtesy copy of this report has been sent to Specimen Comment: [phone], . Specimen Comment: Report sent to / DR XIONG Specimen Comment: A duplicate report has been generated due to demographic updates. Performed at: 01 [facility] [address] [facility] [address], [place] [id number] MD Fabio Gaffney MD Phone: [phone] Performed at: 02 [facility] [address] [place], [place] [id number] MD Klever Argueta MD Phone: [phone]
== END 2018-08-22 16:46 | DRG 470 ==
LOC: OPSVCIP 10:40 → 4 SOUTHEST 17:30
PROVIDERS: ADMIT Orthopaedic Surgery; ATTEND Orthopaedic Surgery
PROC: 5A09357 Assistance with Respiratory Ventilation, Less than 24 Consecutive Hours, Continuous Positive Airway Pressure (ICD-10-PCS; 2018-08-19)
PROC: 0SRD069 Replacement of Left Knee Joint with Oxidized Zirconium on Polyethylene Synthetic Substitute, Cemented, Open Approach (ICD-10-PCS; principal; 2018-08-19 14:00)
DX: M17.12 Unilateral primary osteoarthritis, left knee (principal); F32.9 Major depressive disorder, single episode, unspecified; E03.9 Hypothyroidism, unspecified; I10 Essential (primary) hypertension; G62.9 Polyneuropathy, unspecified; S51.812A Laceration without foreign body of left forearm, initial encounter; W18.39XA Other fall on same level, initial encounter; Y92.238 Other place in hospital as the place of occurrence of the external cause; Y93.89 Activity, other specified; Y99.8 Other external cause status; Z90.710 Acquired absence of both cervix and uterus; Z90.49 Acquired absence of other specified parts of digestive tract; Z88.2 Allergy status to sulfonamides; Z79.899 Other long term (current) drug therapy; Z79.82 Long term (current) use of aspirin; Z83.3 Family history of diabetes mellitus; Z82.49 Family history of ischemic heart disease and other diseases of the circulatory system
CPT/HCPCS: 36415; 73560; 82962; 85014; 85018; 86850; 86900; 86901; 88305; 88311; A7015; C1713; J0171; J0330; J0690; J1100; J1885; J2001; J2250; J2270; J2370; J2405; J2704; J2710; J2795; J3010; J3260; J3370; J3490; J7030; J7120; J7613; J7626; 97116; 97150; 97530; 97535; A4461; C1769